=== PATIENT | female | born 1980 | race African-American/Black ===

== ENCOUNTER 2018-09-15 06:28 | Inpatient (IN) | payer OTHER ==
[~2018-09-15] VITALS: Ht 172.7 cm; Wt 88.0 kg
[2018-09-15] MEDS ORDERED: PRENATAL TABLE1 EAC2 PO (08:46)
== END 2018-09-17 12:17 | DRG 807 ==
LOC: LDR 06:28 → OB/GYN 06:28 → LDR 06:41 → OB/GYN 17:58
PROVIDERS: ADMIT Obstetrics & Gynecology
PROC: 10E0XZZ Delivery of Products of Conception, External Approach (ICD-10-PCS; principal; 2018-09-15)
PROC: 4A1HXCZ Monitoring of Products of Conception, Cardiac Rate, External Approach (ICD-10-PCS; 2018-09-15)
PROC: 3E033VJ Introduction of Other Hormone into Peripheral Vein, Percutaneous Approach (ICD-10-PCS; 2018-09-15)
PROC: 0HQ9XZZ Repair Perineum Skin, External Approach (ICD-10-PCS; 2018-09-15)
DX: O70.0 First degree perineal laceration during delivery (principal); Z37.0 Single live birth; Z3A.39 39 weeks gestation of pregnancy

== ENCOUNTER 2018-10-27 06:20 | Day surgery (SDC) | payer OTHER ==
[~2018-10-27 06:20] MED LIST: FERROCITE PLUS1 EACH; FOLIC ACID0.4 MG; PRENATAL TABLE1 EAC2 PO
== END 2018-10-27 13:35 | disposition home or self-care (01) ==
LOC: CIR.AMB 06:20
DX: Z30.2 Encounter for sterilization (principal)

== ENCOUNTER 2019-04-28 19:03 | Emergency (ER) | payer OTHER ==
[~2019-04-28] VITALS: Ht 172.7 cm; Wt 74.4 kg
== END 2019-04-28 22:19 | disposition home or self-care (01) ==
LOC: ER 19:03
DX: B96.0 Mycoplasma pneumoniae [M. pneumoniae] as the cause of diseases classified elsewhere (principal); M54.2 Cervicalgia; J06.9 Acute upper respiratory infection, unspecified

== ENCOUNTER 2023-09-16 05:45 | Day surgery (SDC) | payer OTHER ==
[2023-09-11 15:46] LABS: INR 1.05; PARTIAL THROMBOPLASTIN TIME 27.9 SECONDS (22.0-34.0)
[~2023-09-16] VITALS: Ht 172.7 cm; Wt 72.6 kg
[~2023-09-16 05:45] MED LIST changes: +FLONASE16 GM
[2023-09-16] MEDS ORDERED: CHLORHEXIDINE GLUCONATE 120 ML BOTTLE TOP ONE ×2 (07:11→08:00)
[2023-09-16] MEDS ORDERED: BUPIVACAINE HCL/PF 0.5% 30ML ML ONE (07:11)
[2023-09-16] MEDS ORDERED: LIDOCAINE HCL/EPINEPHRINE 20 ML VIAL IJ ONE (07:11)
[2023-09-16] MEDS ORDERED: CEFOXITIN SODIUM 2,000 MG VIAL IV ONE ×2 (07:11→07:12)
[2023-09-16] MEDS ORDERED: POVIDONE-IODINE 118 ML BOTT TOP ONE ×3 (07:11→08:00)
[2023-09-16] MEDS ORDERED: CEFOXITIN SODIUM 2,000 MG VIAL IV SCH (08:00)
[2023-09-16] MEDS ORDERED: ONDANSETRON HCL 2 MG/ML VIAL IV ONE (08:15)
== END 2023-09-16 14:50 | disposition home or self-care (01) ==
LOC: CIR.AMB 05:45
PROVIDERS: ATTEND Obstetrics & Gynecology
DX: N93.8 Other specified abnormal uterine and vaginal bleeding (principal); Z20.822 Contact with and (suspected) exposure to COVID-19

== ENCOUNTER 2024-11-12 09:25 | Emergency (ER) | payer OTHER ==
[~2024-11-12] VITALS: Ht 172.7 cm; Wt 77.6 kg
[2024-11-12 09:42] VITALS: BP 119/79; O2SAT 95
[2024-11-12] MEDS ORDERED: ACETAMINOPHEN 500 MG GEL..CAP PO ONE ×2 (10:08→10:15)
[2024-11-12 10:35] LABS: HEMATOCRIT 33.2 % (36.0-45.00); HEMOGLOBIN 11.2 g/dL (12.0-15.00); MEAN CELL VOLUME 87.7 fL (80.00-100.00); MEAN CORPUSCULAR HEMOGLOBIN 29.5 pg (27.00-32.0); MEAN CORPUSCULAR HGB CONC 33.6 g/dl (32.0-36.0); PLATELET COUNT 184 K/uL (150-450); RED BLOOD COUNT 3.79 M/uL (4.00-6.00); RED CELL DISTRIBUTION WIDTH 14.6 % (11.5-14.5)
[2024-11-12 11:08] LABS: CALCIUM 8.6 mg/dL (8.5-10.1); CREATININE SERUM 0.78 mg/dL (0.55-1.02); GFR 80.99; POTASSIUM 3.64 mEq/L (3.5-5.1)
[2024-11-12] MEDS ORDERED: BENZONATATE100 MG PO (11:58)
[2024-11-12] MEDS ORDERED: ZITHROMAX200 MG PO (11:58)
[2024-11-12] MEDS ORDERED: OSEL75CA PO (11:58)
[2024-11-12] MEDS ORDERED: ZYRTEC10 M3 PO (11:59)
== END 2024-11-12 12:13 | disposition home or self-care (01) ==
LOC: ER 09:26
PROVIDERS: General Practice
DX: B34.8 Other viral infections of unspecified site (principal)